=== PATIENT | male | born 1965 | race Two or more races ===

== ENCOUNTER 2018-10-18 11:25 | Emergency (ER) | END 2018-10-18 11:55 | disposition home or self-care (01) | DX: J20.9 Acute bronchitis, unspecified (principal); K21.9 Gastro-esophageal reflux disease without esophagitis ==

== ENCOUNTER 2022-12-24 23:14 | Emergency (ER) | payer MEDICAID, OTHER ==
[~2022-12-24] VITALS: Ht 180.3 cm; Wt 104.3 kg
--- NOTE | 2022-12-25 01:00 | NUR ---
BIB FAMILY FOR R HAND DOG BITE. UPDATED TDAP. PATIENT IS AAOX4. ABLE TO MAKE NEEDS KNOWN. PLACED COMFORTABLY IN BED. VITALS CHECKED. SKIN PREP DONE. PATIENT HAS RIGHT HAND LAC APPROX 3CM. FOR SUTURING OF WOUND.
--- NOTE | 2022-12-25 02:20 | NUR ---
PT BECAME LIGHTHEADED AND DIAPHORETIC DURING THE SUTURING OF LACERATED WOUND BY . DR XIE NEED TO STOP THE PROCEDURE.
[2022-12-25 02:25] VITALS: BP 103/63
--- NOTE | 2022-12-25 02:25 | NUR ---
ATTACHED TO MONITOR. VITALS BEING MONITORED.
--- NOTE | 2022-12-25 02:29 | NUR ---
BS OF 89mg/dl
--- NOTE | 2022-12-25 02:31 | NUR ---
Enmanuel mendez in [facility] - 12/25/22 at 0232 by WILMAN BS 87mg/dl
--- NOTE | 2022-12-25 02:31 | NUR ---
EKG DONE AT BEDSIDE
[2022-12-25] MEDS ORDERED: AMOX-430 PO (02:57)
--- NOTE | 2022-12-25 03:11 | NUR ---
Patient discharged to home in stable condition. Written and verbal after care instructions given. Patient verbalizes understanding of instruction.
== END 2022-12-25 03:11 | disposition home or self-care (01) ==
LOC: ER 23:19
DX: S61.411A Laceration without foreign body of right hand, initial encounter (principal); Z88.0 Allergy status to penicillin; W54.0XXA Bitten by dog, initial encounter; Y93.89 Activity, other specified; Y92.89 Other specified places as the place of occurrence of the external cause; Y99.8 Other external cause status
CPT/HCPCS: 73130-TC; 82962-TC

== ENCOUNTER 2025-09-25 10:07 | Emergency (ER) | payer OTHER ==
[~2025-09-25] VITALS: Ht 175.3 cm; Wt 81.6 kg
[~2025-09-25 10:07] MED LIST: AMOX-430 PO
[2025-09-25 10:52] LABS: PLATELET COUNT (AUTO) 207 K/uL (150-450); RED BLOOD CELL COUNT(AUTO) 5.18 MIL/uL (4.5-6.0); RED CELL DISTRIBUTION WIDTH 13.8 % (11.5-15.0); WHITE BLOOD COUNT (AUTO) 4.9 K/uL (4.3-11.0)
[2025-09-25] MEDS ORDERED: ACETAMINOPHEN ES 500 MG TABLET ONE (10:55)
[2025-09-25] MEDS: ACETAMINOPHEN ES 500 MG TABLET PO ONE (10:57)
[2025-09-25 11:00] LABS: CALCIUM, SERUM 8.4 mg/dL (8.5-10.1); CREATININE 1.1 mg/dL (0.6-1.3); SODIUM SERUM 139.0 mmol/L (136-145); UREA NITROGEN, BLOOD 18.0 mg/dL (7-18)
[2025-09-25] MEDS: IV NS 0.9% 1,000 ML BAG IV ONE (11:00)
[2025-09-25 11:05] LABS: INR 0.95 (0.91-1.10)
[2025-09-25] MEDS ORDERED: IOHEXOL-300 100 ML VIAL IV ONE (11:50)
[2025-09-25] MEDS ORDERED: IV NS 0.9% 250 ML IV ONE (11:50)
[2025-09-25 14:01] VITALS: BP 122/84; TEMP 97.7; O2SAT 99
== END 2025-09-25 14:03 | disposition home or self-care (01) ==
LOC: ER 10:14
DX: S80.212A Abrasion, left knee, initial encounter (principal); Z88.0 Allergy status to penicillin; Z87.19 Personal history of other diseases of the digestive system; V89.2XXA Person injured in unspecified motor-vehicle accident, traffic, initial encounter; Y93.89 Activity, other specified; Y92.410 Unspecified street and highway as the place of occurrence of the external cause; Y99.8 Other external cause status
CPT/HCPCS: 99285; 71260; 73140; 74177; 85025; 80048; 36415; 85730; J7030; J7050; Q9967